=== PATIENT | male | born 1960 | race Caucasian/White ===

== ENCOUNTER 2016-05-24 01:53 | Observation (INO) | payer OTHER ==
--- NOTE | ~2016-05-24 | HP ---
History And Physical [address] [place]. [address] NAME: GIBSON QUINTANILLA : 60 STATUS : ADM Kelly PAT#: [id number] AGE: 56 ADM/REG DATE : 05/24/16 MR#: [id number] REPORT SERV DATE: 05/24/16 DICTATED BY: LEANN CORTES DATE: 05/24/16 REPORT STATUS : Draft TRANSCRIBED BY: MODL DATE: 05/24/16 DATE OF ADMISSION: 05/24/2016 CHIEF COMPLAINT: Chest pain. HISTORY OF PRESENT ILLNESS: A 56-year-old man, followed by Dr. Sage, known to me from prior care, has history of coronary artery disease with 2005 deployment of 3.0 X8 Cypher stent, and 2.5 X18 Cypher stent in circumflex artery, 11/18 catheterization demonstrating patent circumflex stented segments, minor ostial circumflex narrowing and proximal right coronary artery 25% narrowing, preserved LV systolic function with grade 2 diastolic dysfunction, noncritical carotid disease, insulin-requiring diabetes, treated hypercholesterolemia. The patient experienced retrosternal chest heaviness lasting 90 minutes occurring at rest yesterday. He has had no prodrome nor antecedent chest pain. He presented to [facility] where workup was unrevealing. Pain was relieved with conventional analgesic therapy. PAST MEDICAL HISTORY: 1. CAD. 2. Insulin-requiring diabetes (presumably DM 1). 3. Hypercholesterolemia. 4. Preserved LV systolic function, compensated diastolic dysfunction. MEDICATIONS: 1. Lisinopril 10 mg daily. 2. Janumet mg b.i.d. 3. Lantus 40 units q.p.m. and 20 units noon. 4. Allopurinol 100 mg daily. 5. Prandin 0.5 mg p.r.n. 6. Welchol 1875 mg q.h.s. 7. Plavix 75 mg daily. 8. Not taking atorvastatin. SOCIAL HISTORY: The patient does not smoke or drink alcohol. FAMILY HISTORY: Noncontributory. REVIEW OF SYSTEMS: Unremarkable. PHYSICAL EXAMINATION: GENERAL: No acute distress. VITAL SIGNS: Blood pressure 121/71, respirations 14, temperature 98.1, pulse 52 and regular. NECK: No JVD. A right carotid bruit. CARDIAC: Entirely unremarkable. ABDOMEN: Benign. History And Physical [place] [address] [facility]. [address] NAME: GIBSON QUINTANILLA : 60 STATUS : ADM Kelly PAT#: [id number] AGE: 56 ADM/REG DATE : 05/24/16 MR#: [id number] REPORT SERV DATE: 05/24/16 DICTATED BY: LEANN CORTES DATE: 05/24/16 REPORT STATUS : Draft TRANSCRIBED BY: MODL DATE: 05/24/16 EXTREMITIES: Warm without edema. Right and left femoral pulses are +2. DATA: EKG: Sinus rhythm at a rate of 64, normal axes and intervals, normal EKG. Other labs pending. ASSESSMENT/PLAN: 1. Chest pain-with known coronary artery disease, symptoms are angina until proven otherwise. We will continue aspirin and Plavix, and commence therapy with heparin. Routine markers and EKG to be obtained. Obtaining myocardial perfusion imaging today. 2. Diabetes mellitus 1-consult hospitalist. 3. Coronary artery disease-asymptomatic. 4. Hypercholesterolemia-apparently not now treated. We will initiate therapy with atorvastatin once again. /MODL Leann Cortes M.D. / [id number] CC: Divine Bai M.D.
[~2016-05-24 01:53] MED LIST: ASAB PO; JANUMET; JANUMET1 TAB PO; LANTUS SC; LIPITOR; LIPITOR20 PO; LISINOPRIL; MULTIPLE VIT PO; PLAVIX PO; PRIN10 PO; WELCHOL 625 MG625 MG PO; Z300 PO
[2016-05-24] MEDS ORDERED: Z100 PO ×2 (02:36→09:20)
[2016-05-24] MEDS ORDERED: PRIN10 PO ×2 (02:37→09:22)
[2016-05-24] MEDS ORDERED: LANTUSCART SC (02:38)
[2016-05-24] MEDS ORDERED: JANUMET1 TA1 PO ×2 (02:38→09:22)
[2016-05-24] MEDS ORDERED: LIPITOR PO (02:38)
[2016-05-24] MEDS ORDERED: PLAVIX PO (02:39)
[2016-05-24] MEDS ORDERED: WELCHOL 625 MG625 MG PO (02:41)
[2016-05-24] MEDS ORDERED: FLEX PO ×2 (02:42→09:21)
[2016-05-24] MEDS ORDERED: IBU600 PO (02:42)
[2016-05-24 06:06] LABS: BASOPHILS 0.4 %; BASOPHILS ABSOLUTE 0.02 10/3/uL (0.0-0.16); EOSINOPHILS 1.9 %; EOSINOPHILS ABSOLUTE 0.11 10/3/uL (0.0-0.53); HEMATOCRIT 40.4 % (40.0-51.0); HEMOGLOBIN 14.2 g/dL (13.6-17.8); IMMATURE GRANULOCYTES 0.2 %; IMMATURE GRANULOCYTES ABSOLUTE 0.01 10/3/uL (0.0-0.11); LYMPHOCYTES 51.1 %; LYMPHOCYTES ABSOLUTE 2.91 10/3/uL (0.67-4.30); MANUAL DIFF NO %; MEAN CORPUS HGB CONC 35.1 g/dL (32.0-36.0); MEAN CORPUSCULAR HEMOGLOB 30.5 pg (26.0-34.0); MEAN CORPUSCULAR VOLUME 86.7 fL (80-100); MEAN PLATELET VOLUME 9.8 fL (9.2-13.0); MONOCYTES ABSOLUTE 0.57 10/3/uL (0.21-1.20); NEUTROPHILS 36.4 %; NEUTROPHILS ABSOLUTE 2.08 10/3/uL (2.02-8.40); PLATELET COUNT 190 10/3/uL (150-400); RBC DISTRIBUTION WIDTH 12.2 % (12.0-16.0); RED CELL COUNT 4.66 10/6/uL (4.7-6.1); WHITE BLOOD CELLS 5.7 10/3/uL (4.5-10.5)
[2016-05-24 06:29] LABS: CHOL/HDL RATIO(NOT ORDER) 4.5 (0-5)
[2016-05-24 08:52] LABS: BASOPHILS 0.3 %; BASOPHILS ABSOLUTE 0.02 10/3/uL (0.0-0.16); EOSINOPHILS 2.4 %; EOSINOPHILS ABSOLUTE 0.14 10/3/uL (0.0-0.53); HEMATOCRIT 40.3 % (40.0-51.0); HEMOGLOBIN 14.3 g/dL (13.6-17.8); IMMATURE GRANULOCYTES 0.3 %; IMMATURE GRANULOCYTES ABSOLUTE 0.02 10/3/uL (0.0-0.11); LYMPHOCYTES 51.7 %; LYMPHOCYTES ABSOLUTE 2.97 10/3/uL (0.67-4.30); MANUAL DIFF NO %; MEAN CORPUS HGB CONC 35.5 g/dL (32.0-36.0); MEAN CORPUSCULAR HEMOGLOB 30.9 pg (26.0-34.0); MONOCYTES 10.3 %; MONOCYTES ABSOLUTE 0.59 10/3/uL (0.21-1.20); NEUTROPHILS ABSOLUTE 2.01 10/3/uL (2.02-8.40); PLATELET COUNT 181 10/3/uL (150-400); RBC DISTRIBUTION WIDTH 12.2 % (12.0-16.0); RED CELL COUNT 4.63 10/6/uL (4.7-6.1); WHITE BLOOD CELLS 5.8 10/3/uL (4.5-10.5)
[2016-05-24 09:16] LABS: BUN (BLOOD UREA NITROGEN) 12 MG/DL (6-23); CALCIUM, SERUM 8.3 MG/DL (8.5-10.4); CHLORIDE, SERUM 103 MMOL/L (96-112); CO2 (CARBON DIOXIDE) 28 MMOL/L (24-34); CPK (IF ELEVATED MB BANDS) 79 U/L (0-200); CREATININE 1.04 MG/DL (0.70-1.30); GFR AFRICAN AMERICAN 93 ML/MIN (>=60); GFR NON AFRICAN AMERICAN 80 ML/MIN (>=60); POTASSIUM, SERUM 3.7 MMOL/L (3.5-5.3); SODIUM, SERUM 141 MMOL/L (135-148); TROPONIN I <0.02 NG/ML (<0.05)
[2016-05-24] MEDS ORDERED: LOFIB160 PO (09:17)
[2016-05-24 09:27] LABS: GLUCOSE, SERUM 140 MG/DL (60-99)
== END 2016-05-24 18:30 | disposition home or self-care (01) ==
LOC: CDU1 01:53
PROVIDERS: Internal Medicine Cardiovascular Disease
DX: R07.9 Chest pain, unspecified (principal); I25.10 Atherosclerotic heart disease of native coronary artery without angina pectoris; E11.9 Type 2 diabetes mellitus without complications; E78.00 Pure hypercholesterolemia, unspecified; Z79.899 Other long term (current) drug therapy
CPT/HCPCS: 78452; 80048; 80061; 82550; 82962; 84460; 84484; 85025; 85730; 93005; 93017; 96372; A9270-GY; A9502; G0378